=== PATIENT | male | born 1970 | race Caucasian/White ===

== ENCOUNTER 2018-06-13 10:08 | Emergency (ER) | END 2018-06-13 11:44 | disposition home or self-care (01) ==

== ENCOUNTER 2018-08-08 18:42 | Emergency (ER) | payer BC ==
[~2018-08-08] VITALS: Ht 170.2 cm; Wt 100.1 kg
[2018-08-08 18:43] VITALS: Ht 170.2 cm; Wt 100.1 kg
[2018-08-08] MEDS ORDERED: LORAZEPAM 1 MG TAB PO ONE (22:30)
[2018-08-08 23:24] VITALS: BP 127/85; PULSE 73; RESP 20
[2018-08-08] MEDS ORDERED: LORA1TAB PO (23:30)
--- NOTE | 2018-08-08 23:30 | ERD ---
ER Documentation Chief Complaint Chief Complaint lft sd cp that started on left back +palpitations hx anxiety. HPI This is a 48-year-old male with left-sided chest pain started on his left back and radiating around to the left and right side of his chest. He also had a pins and needle sensation across his chest. Patient says he was very anxious when it happened and felt very shaky. Took a half a Klonopin with no effect. Patient states that he has had panic attacks in the past and this feels similar to previous panic attack. Denies any fevers chills. Denied any nausea or vomiting. Denies any other current complaints. Denies any shortness of breath ROS All systems reviewed and are negative except as per history of present illness. Allergies Allergies: Coded Allergies: No Known Drug Allergy (Verified Allergy, Unknown, 08/08/18) PMhx/Soc History of Surgery: No Anesthesia Reaction: No Hx Neurological Disorder: No Hx Respiratory Disorders: No Hx Cardiac Disorders: Yes (HTN) Hx Psychiatric Problems: No Hx Alcohol Use: No Hx Substance Use: No Hx Tobacco Use: No Smoking Status: Never smoker Physical Exam Vitals Vital Signs Date Temp Pulse Resp B/P (MAP) Pulse Ox O2 O2 Flow FiO2 Time Delivery Rate 08/08/18 97.8 73 20 127/85 100 Room Air 23:24 (99) 08/08/18 97.9 98 20 171/93 97 18:43 (119) Physical Exam Const: No acute distress Head: Atraumatic Eyes: Normal Conjunctiva ENT: Normal External Ears, Nose and Mouth. Neck: Full range of motion. No meningismus. Resp: Clear to auscultation bilaterally Cardio: Regular rate and rhythm, no murmurs Abd: Soft, non tender, non distended. Normal bowel sounds Skin: No petechiae or rashes Back: No midline or flank tenderness Ext: No cyanosis, or edema Neur: Awake and alert Psych: Normal Mood and Affect Results 24 hrs Current Medications Medications Dose Sig/Roro Start Time Status Last (Trade) Ordered Route PRN Stop Time Admin Dose Reason Admin Lorazepam 2 mg ONCE ONCE 08/08/18 DC 08/08/18 (Ativan) PO 22:30 08/08/18 22:38 22:31 Procedures/MDM EKG: Rate/Rhythm: [Normal Sinus Rhythm] QRS, ST, T-waves: [No changes consistent w/ acute ischemia] Impression: [No evidence of ischemia or arrhythmia] Chest X-ray 1V Interpreted by me: Soft Tissue: No acute abnorma lities Bones: No acute abnormalities Mediastinum/Cardiac Silhouette/Lungs: [No acute abnormalities] Medical decision making: Patient's thoracic symptoms have stabilized while in the department and are stable for outpatient follow up. Exam and work up not consistent w/ ischemia, arrhythmia, PE or dissection. Departure Diagnosis: Primary Impression: Chest pain Chest pain type: unspecified Qualified Codes: R07.9 - Chest pain, unspecified Additional Impression: Anxiety Condition: Stable FIORDALIZA MALCOLM Aug 08, 2018 23:30
== END 2018-08-08 23:42 | disposition home or self-care (01) ==
LOC: E/R 18:42
DX: R07.9 Chest pain, unspecified (principal); F41.9 Anxiety disorder, unspecified; I10 Essential (primary) hypertension
CPT/HCPCS: 71045; 93005